=== PATIENT | female | born 1990 | race African-American/Black ===

== ENCOUNTER 2025-04-24 11:48 | Emergency (ER) | payer SELFPAY ==
[~2025-04-24] VITALS: Ht 157.5 cm; Wt 73.0 kg
[2025-04-24 11:51] VITALS: O2SAT 98
[2025-04-24] MEDS: CYCLOBENZAPRINE 10MG TABLET PO ONE (12:43)
[2025-04-24] MEDS: KETOROLAC 30MG/ML VIAL IM ONE (12:43)
[2025-04-24] MEDS: TETANUS, DIPHTHERIA, PERTUSSIS VAC/PF 0.5ML (>10YR OLD) IM ONE (14:14)
[2025-04-24] MEDS: BACITRACIN ZINC OINT UDPKT TOP ONE (14:21)
[2025-04-24] MEDS: LIDOCAINE 5% PATCH TOP STA (14:21)
[2025-04-24] MEDS: ACETAMINOPHEN 325MG TABLET PO ONE (14:21)
[2025-04-24] MEDS ORDERED: BO1 TP (14:30)
[2025-04-24] MEDS ORDERED: FLUC150T46 MT (14:30)
[2025-04-24] MEDS ORDERED: CEPH500T MT (14:30)
[2025-04-24] MEDS ORDERED: IBUP-2029 MT (14:33)
[2025-04-24] MEDS ORDERED: CYCL10TA21 MT (14:33)
[2025-04-24] MEDS ORDERED: LIDO700A30 TP (14:33)
[2025-04-24 15:06] VITALS: BP 101/74; PULSE 56; RESP 16; TEMP 36.8; O2SAT 100
== END 2025-04-24 15:07 | disposition home or self-care (01) ==
LOC: ER 11:48
DX: S00.85XA Superficial foreign body of other part of head, initial encounter (principal); Z79.899 Other long term (current) drug therapy; X58.XXXA Exposure to other specified factors, initial encounter; Y93.89 Activity, other specified; Y92.89 Other specified places as the place of occurrence of the external cause; Y99.8 Other external cause status; M54.2 Cervicalgia
CPT/HCPCS: 81025; 70486; 90715; 90471; 96372; 99285; J1885; Z7610